=== PATIENT | female | born 1990 | race African-American/Black ===

== ENCOUNTER 2017-08-28 10:39 | Emergency (ER) | payer MEDICAID, SELFPAY ==
[2017-08-28 11:09] VITALS: BP 130/82; PULSE 77; RESP 18; TEMP 37.1; O2SAT 100; BMI 24.1
[2017-08-28 11:22] VITALS: BP 138/78; PULSE 79; RESP 16; TEMP 37.1; O2SAT 100; BMI 23.8
--- NOTE | 2017-08-28 11:37 | XR_ITS ---
XR abdomen min 2V COMPARISON: None HISTORY: Abdominal pain TECHNIQUE: KUB and upright abdomen FINDINGS: The bowel gas pattern is unremarkable with no dilated loops noted. There are no abnormal soft tissue shadows and is no free air. There are no suspicious calcifications. IMPRESSION: Nondiagnostic abdomen
[2017-08-28 11:47] LABS: Microscopic, Urine URINE MICROSCOPIC (MICROSCOPIC)
[2017-08-28 11:51] LABS: Appearance,Urine SL CLOUDY (Clear); Bilirubin,Urine Negative (Negative); Blood, Urine Negative (Negative); Glucose,Urine (UA) Negative (Negative); Ketones,Urine Negative (Negative); Leukocyte Esterase,Urine 1+ (Negative); Nitrate,Urine POSITIVE (Negative); Protein,Urine Negative (Negative); Urobilinogen,Urine 0.2 EU/dl (0.2)
[2017-08-28 11:53] LABS: Urine Pregnancy, HCG Qual. Negative (Negative)
[2017-08-28 11:57] LABS: Strep Scrn Group A (Rapid) Negative (Negative)
[2017-08-28 12:00] LABS: Bacteria,Urine 4+ /lpf; Color,Urine Yellow (Yellow)
[2017-08-28 12:04] LABS: Basophils % 0.2 % (0.1-2.0); Eosinophils # 0.1 K/mm3 (0.0-0.4); Eosinophils % 1.1 % (0.1-12.0); Hematocrit 35.8 % (37.0-47.0); Hemoglobin 10.7 g/dL (12.2-16.2); Lymphocytes # 1.6 K/mm3 (0.7-4.5); Lymphocytes % 15.2 K/mm3 (10-50); Mean Corpuscular HGB Conc 29.9 g/dL (31.8-35.4); Mean Corpuscular Hemoglobin 23.9 pg (27.0-31.2); Mean Corpuscular Volume 79.8 fl (81-99); Mean Platelet Volume 7.8 fl (7.4-10.4); Monocytes # 0.4 K/mm3 (0.1-1.0); Monocytes % 3.5 % (1.7-9.3); Neutrophils # 8.4 K/mm3 (1.8-7.8); Platelet Count 288 K/mm3 (142-424); Red Blood Count 4.49 M/mm3 (4.20-5.40); Red Cell Distribution Width 14.9 % (11.5-17.5); White Blood Count 10.5 K/mm3 (4.8-10.8)
[2017-08-28 12:12] LABS: Alanine Aminotransferase 15 U/L (12-78); Albumin Level 3.5 gm/dL (3.4-5.0); Alkaline Phosphatase 54 U/L (46-116); Anion Gap 12.6 mEq/L (5-15); Aspartate Amino Transferase 12 U/L (15-37); Bilirubin,Total 0.3 mg/dL (0.2-1.0); Blood Urea Nitrogen 12 mg/dL (7-18); Calcium 8.6 mg/dL (8.5-10.1); Carbon Dioxide 26 mmol/L (21.0-32.0); Chloride 105 mmol/L (98-107); Creatinine Clearance Estimated 121 mL/min (0-300); Creatinine,Serum 0.71 mg/dL (0.55-1.02); Estimated Glomerular Filt Rate 98 ml/min (>60); GFR (African American) 119 ML/MIN (>60); Globulin 3.4 gm/dl (1.3-3.2); Glucose 83 mg/dL (74-106); Potassium 3.6 mmoL/L (3.5-5.1); Sodium 140 mmol/L (136-145); Total Protein,Serum 6.9 gm/dL (6.4-8.2)
--- NOTE | 2017-08-28 12:47 | [facility].EDABDPAI ---
ED Disposition Clinical Impression: Peptic ulcer disease, UTI (urinary tract infection), Abdominal pain, Alcohol abuse, Tobacco use, Left against medical advice Disposition: Home, Self-Care Condition on Discharge: Fair Instructions: DI for Acute Abdomen Additional Instructions: 1- I understand that ypu are leaving againest medical advice , you are aware of risk of sepsis, hemorrhage and . 2- start pepcid and macrobid. 3- follow up with pcp of your pcp. 4- return at any time Prescriptions: Nitrofurantoin Monohyd/M-Cryst [Macrobid 100 mg Capsule] 100 mg PO BID #14 cap raNITIdine HCl [Zantac] 300 mg PO BID #30 tab Referrals: Provider,MD Ching [Primary Care Provider] - Tavo Villarreal MD [Staff Physician] - - Critical Care Critical Care Time: No Attestation: On 08/28/17, the high probability of a clinically significant, sudden or life threatening deterioration of the following system(s) required my full and direct attention, intervention and personal management. The time I documented below is in addition to time spent performing reported procedures but includes the following listed in this critical care notation. Medical Decision Making - Curtis Inquiry Pt receiving controlled substance: No Curtis was queried for this patient: No Vital Signs: 08/28/17 11:09 08/28/17 11:22 08/28/17 13:52 Temperature 98.8 F 98.7 F Temperature Source Oral Oral Pulse Rate [Right Radial] 77 79 76 Respiratory Rate 18 16 18 Blood Pressure [Right Arm] 130/82 138/78 123/74 Blood Pressure Mean [Right Arm] 98 98 90 Blood Pressure Source [Right Arm] Automatic Cuff Blood Pressure Position [Right Arm] Sitting 02 Sat by Pulse Oximetry 100 100 100 Oxygen Delivery Method Room Air Room Air - Lab Data Lab Results 08/28/17 11:30: Urine HCG, Qual Negative 08/28/17 11:40: Urine Color Yellow, Urine Appearance Sl cloudy, Urine pH 7.0, Ur Specific [place] 1.010, Urine Protein Negative, Urine Glucose (UA) Negative, Urine Ketones Negative, Urine Blood Negative, Urine Nitrate Positive, Urine Bilirubin Negative, Urine Urobilinogen 0.2, Ur Leukocyte Esterase 1+ A, Urine WBC 3-5, Ur Squamous Epith Cells 5-10, Urine Bacteria 4+ 08/28/17 11:40: Influenza Type A Ag Negative, Influenza Type B Ag Negative 08/28/17 11:40: Group A Strep Rapid Negative 08/28/17 11:48: WBC 10.5, RBC 4.49, Hgb 10.7 L, Hct 35.8 L, MCV 79.8 L, MCH 23.9 L, MCHC 29.9 L, RDW 14.9, Plt Count 288, MPV 7.8, Neut % (Auto) 80.0, Lymph % (Auto) 15.2, [place] % (Auto) 3.5, Eos % (Auto) 1.1, Baso % (Auto) 0.2, Neut # (Auto) 8.4 H, Lymph # (Auto) 1.6, [place] # (Auto) 0.4, Eos # (Auto) 0.1, Baso # (Auto) 0.0 08/28/17 11:48: Sodium 140, Potassium 3.6, Chloride 105, Carbon Dioxide 26, Anion Gap 12.6, BUN 12, Creatinine 0.71, Estimated Creat Clear 121, Estimated GFR 98, Est GFR ( Amer) 119, Glucose 83, Calcium 8.6, Total Bilirubin 0.3, AST 12 L, ALT 15, Alkaline Phosphatase 54, Total Protein 6.9, Albumin 3.5, Globulin 3.4 H, Albumin/Globulin Ratio 1.0 L 08/28/17 11:48: Magnesium 1.8 08/28/17 11:48: Lipase 42 L 08/28/17 12:45: Stool Occult Blood Negative Result diagrams: 08/28/17 11:48 08/28/17 11:48 Orders (Tests/Meds): ED MEDICATIONS Discontinued Medications Generic Name Dose Route Start Last Admin Trade Name Freq PRN Reason Stop Dose Admin Diatrizoate Meglum/Diatrizoate Sod 30 ml 08/28/17 12:46 Gastrografin 66%-10% 30ml PO 08/28/17 12:47 ONCE ONE Dicyclomine HCl 10 mg 08/28/17 12:47 Bentyl 10mg Capsule PO 08/28/17 12:48 ONCE ONE Famotidine 20 mg 08/28/17 12:46 Pepcid 20mg/2ml Vial IV 08/28/17 12:47 ONCE ONE ORDERS Category Date Time Status CT abdomen pelvis w con Stat Cat Scan 08/28/17 12:45 Ordered Strep Screen Confirmation Stat Micro 08/28/17 11:40 Received Urine Culture Stat Micro 08/28/17 11:40 Received Medical Decision Narrative: The patient decided not to undergo a CT scan of
--- NOTE | 2017-08-28 12:50 | PC.NURSE ---
Dr Marcos at bedside for exam accompanied by Oc Alexander RN--rectal exam per Dr Marcos with stool specimen obtained for hemoccult.
--- NOTE | 2017-08-28 12:51 | ED_ITS ---
ED Disposition Clinical Impression: Peptic ulcer disease, UTI (urinary tract infection), Abdominal pain, Alcohol abuse, Tobacco use, Left against medical advice Disposition: Home, Self-Care Condition on Discharge: Fair Instructions: DI for Acute Abdomen Additional Instructions: 1- I understand that ypu are leaving againest medical advice , you are aware of risk of sepsis, hemorrhage and . 2- start pepcid and macrobid. 3- follow up with pcp of your pcp. 4- return at any time Prescriptions: Nitrofurantoin Monohyd/M-Cryst [Macrobid 100 mg Capsule] 100 mg PO BID #14 cap raNITIdine HCl [Zantac] 300 mg PO BID #30 tab Referrals: Provider,MD Ching [Primary Care Provider] - Tavo Villarreal MD [Staff Physician] - - Critical Care Critical Care Time: No Attestation: On 08/28/17, the high probability of a clinically significant, sudden or life threatening deterioration of the following system(s) required my full and direct attention, intervention and personal management. The time I documented below is in addition to time spent performing reported procedures but includes the following listed in this critical care notation. Medical Decision Making - Curtis Inquiry Pt receiving controlled substance: No Curtis was queried for this patient: No Vital Signs: 08/28/17 11:09 08/28/17 11:22 08/28/17 13:52 Temperature 98.8 F 98.7 F Temperature Source Oral Oral Pulse Rate [Right Radial] 77 79 76 Respiratory Rate 18 16 18 Blood Pressure [Right Arm] 130/82 138/78 123/74 Blood Pressure Mean [Right Arm] 98 98 90 Blood Pressure Source [Right Arm] Automatic Cuff Blood Pressure Position [Right Arm] Sitting 02 Sat by Pulse Oximetry 100 100 100 Oxygen Delivery Method Room Air Room Air - Lab Data Lab Results 08/28/17 11:30: Urine HCG, Qual Negative 08/28/17 11:40: Urine Color Yellow, Urine Appearance Sl cloudy, Urine pH 7.0, Ur Specific [place] 1.010, Urine Protein Negative, Urine Glucose (UA) Negative, Urine Ketones Negative, Urine Blood Negative, Urine Nitrate Positive, Urine Bilirubin Negative, Urine Urobilinogen 0.2, Ur Leukocyte Esterase 1+ A, Urine WBC 3-5, Ur Squamous Epith Cells 5-10, Urine Bacteria 4+ 08/28/17 11:40: Influenza Type A Ag Negative, Influenza Type B Ag Negative 08/28/17 11:40: Group A Strep Rapid Negative 08/28/17 11:48: WBC 10.5, RBC 4.49, Hgb 10.7 L, Hct 35.8 L, MCV 79.8 L, MCH 23.9 L, MCHC 29.9 L, RDW 14.9, Plt Count 288, MPV 7.8, Neut % (Auto) 80.0, Lymph % (Auto) 15.2, [place] % (Auto) 3.5, Eos % (Auto) 1.1, Baso % (Auto) 0.2, Neut # (Auto) 8.4 H, Lymph # (Auto) 1.6, [place] # (Auto) 0.4, Eos # (Auto) 0.1, Baso # (Auto) 0.0 08/28/17 11:48: Sodium 140, Potassium 3.6, Chloride 105, Carbon Dioxide 26, Anion Gap 12.6, BUN 12, Creatinine 0.71, Estimated Creat Clear 121, Estimated GFR 98, Est GFR ( Amer) 119, Glucose 83, Calcium 8.6, Total Bilirubin 0.3 , AST 12 L, ALT 15, Alkaline Phosphatase 54, Total Protein 6.9, Albumin 3.5, Globulin 3.4 H, Albumin/Globulin Ratio 1.0 L 08/28/17 11:48: Magnesium 1.8 08/28/17 11:48: Lipase 42 L 08/28/17 12:45: Stool Occult Blood Negative Result diagrams: 08/28/17 11:48 08/28/17 11:48 Orders (Tests/Meds): ED MEDICATIONS Discontinued Medications Generic Name Dose Route Start Last Admin Trade Name Freq PRN Reason Stop Dose Admin Diatrizoate Meglum/Diatrizoate Sod 30 ml 08/28/17 12:46 Gastrografin 66
[2017-08-28 12:59] LABS: Lipase 42 u/L (73-393); Magnesium 1.8 mg/dL (1.4-2.2)
[2017-08-28 13:11] LABS: Occult Blood,Stool Negative (Negative)
[2017-08-28 13:52] VITALS: BP 123/74; PULSE 76; RESP 18; O2SAT 100
--- NOTE | 2017-08-28 13:58 | PC.NURSE ---
ENTERED ROOM TO GIVE PT ORAL CONTRAST. PT STATES SHE DOES NOT WANT CT AND THAT SHE HAS TO LEAVE TO [facility]IS[employer] LEAD HER KIDS. AMA FORM WILL BE FILLED OUT BY PT BEFORE LEAVING.
[2017-08-28 14:04] VITALS: BP 114/76; PULSE 78; RESP 16; TEMP 36.7; O2SAT 98
== END 2017-08-28 14:10 | disposition home or self-care (01) ==
LOC: UTC 10:46 → ER 11:21
PROVIDERS: Emergency Provider Emergency Medicine
DX: K27.9 Peptic ulcer, site unspecified, unspecified as acute or chronic, without hemorrhage or perforation (principal); N39.0 Urinary tract infection, site not specified; F10.10 Alcohol abuse, uncomplicated; F17.210 Nicotine dependence, cigarettes, uncomplicated; Z88.2 Allergy status to sulfonamides
CPT/HCPCS: 74019; 80053; 81001; 81025; 82272; 83690; 83735; 85025; 87077; 87086; 87275; 87276; 87430; 99284; G0328